=== PATIENT | female | born 1945 | race Caucasian/White ===

== ENCOUNTER 2024-04-17 02:50 | Observation (INO) | payer MEDICARE ==
[2024-04-17] MEDS ORDERED: Aspirin Chewable 81 MG TAB ONE (04:01)
[2024-04-17 05:31] LABS: Troponin I 0.048 ng/mL (< 0.028)
[2024-04-17] MEDS ORDERED: Ondansetron PF 4 MG/2 ML Vial IVP PRN (06:45)
[2024-04-17] MEDS ORDERED: Ondansetron ODT 4 MG TAB PO PRN (06:45)
[2024-04-17] MEDS ORDERED: Acetaminophen 325 MG TAB PO PRN (06:45)
[2024-04-17] MEDS ORDERED: Calcium Carbonate 500 MG ChewTAB PO PRN (06:45)
[2024-04-17 08:36] LABS: Hemoglobin A1c 6.1 % (4.0-6.0)
[2024-04-17] MEDS ORDERED: Famotidine 20 MG TAB PO SCH (09:00)
[2024-04-17] MEDS ORDERED: Famotidine 20 MG TAB ONE (09:16)
[2024-04-17] MEDS ORDERED: hydrALAZINE 20 MG/ML VIAL SLOW IVP PRN (10:26)
[2024-04-17 11:33] LABS: Troponin I 0.025 ng/mL (< 0.028)
[2024-04-17] MEDS ORDERED: hydrOXYzine 25 MG TAB PO PRN (12:05)
[2024-04-17] MEDS ORDERED: Polyethylene Glycol 3350 17 GM Packet PO PRN (12:05)
[2024-04-17] MEDS ORDERED: Docusate 100 MG CAP PO PRN (12:05)
[2024-04-17] MEDS ORDERED: Benzocaine/Menthol 1 LOZ LOZ PO PRN (12:33)
[2024-04-17] MEDS ORDERED: GUAIFENESIN SF SOLN 200 MG/10 ML UDCUP PO PRN (12:33)
[2024-04-17 14:19] VITALS: BMI 39.0
[2024-04-17] MEDS: Gabapentin 100 MG CAP PO SCH (19:09)
[2024-04-17 20:11] LABS: HBSAB Concentration Less than 8.00 mIU/mL; HBsAg Index 0.34 S/CO (0-0.99); Hep B Core Total Ab NONREACTIVE (NonReactive); Hep B Core Total Index 0.21 S/CO (0-0.79); Hep B Surf AB NONREACTIVE (NonReactive); Hep B Surf Ag NONREACTIVE S/CO (NonReactive); Hep C IgG Ab NONREACTIVE S/CO (NonReactive); Hep C Index 0.07 S/CO (0-0.79)
[2024-04-17] MEDS ORDERED: tiZANidine HCl 4 MG TAB PO SCH (21:00)
[2024-04-17] MEDS: Dronedarone HCl 400 MG TAB PO SCH (22:10)
[2024-04-17] MEDS: Amitriptyline HCl 100 MG TAB PO SCH (22:10)
[2024-04-17] MEDS: Rosuvastatin 10 MG TAB PO SCH (22:11)
[2024-04-17] MEDS: rOPINIRole HCl 2 MG TAB PO SCH (22:11)
[2024-04-17] MEDS: Apixaban 5 MG TAB PO SCH (22:11)
[2024-04-17] MEDS: tiZANidine HCl 4 MG TAB PO PRN (22:54)
[2024-04-18 04:44] LABS: #Basophils 0.04 10x3/uL (0.0-0.2); %Basophils 0.5 % (0.0-1.0); %Eosinophils 1.4 % (0.0-10.0); %Lymphocytes 17.5 % (21.0-51.0); %Monocytes 7.1 % (0.0-10.0); %Neutrophils 72.9 % (42.0-75.0); Hematocrit 32.9 % (36.0-47.0); Hemoglobin 10.6 g/dL (12.0-16.0); Mean Corpuscular HGB CONC 32.2 g/dL (32.0-36.0); Mean Corpuscular Hemoglobin 30.5 pg (27.0-31.0); Mean Corpuscular Volume 94.8 fL (78.0-98.0); Platelet Count 200 10x3/uL (130-400); RBC Distribution Width 15.7 % (11.5-14.5); Red Blood Cell (RBC) Count 3.47 mill/uL (4.20-5.40)
[2024-04-18] MEDS: Levothyroxine 175 MCG TAB PO SCH (05:47)
[2024-04-18 05:53] LABS: ALT (SGPT) 9 U/L (8-55); AST (SGOT) 12 U/L (5-34); Alkaline Phosphatase 65 U/L (40-110); Anion Gap 11 mmol/L (10-20); BUN (Urea Nitrogen) 13 mg/dL (9.8-20.1); Bilirubin, Total 0.5 mg/dL (0.2-1.2); Calc. Creatinine Clearance 24 mL/min (70-130); Calcium 8.3 mg/dL (7.8-10.44); Carbon Dioxide 32 mmol/L (23-31); Chloride 101 mmol/L (98-107); Estimated GFR 14; Globulin 2.5 g/dL (2.4-3.5); Glucose 150 mg/dL (83-110); Potassium 3.3 mmol/L (3.5-5.1); Protein, Total 5.5 g/dL (5.8-8.1); Sodium 141 mmol/L (136-145)
[2024-04-18] MEDS: Ezetimibe 10 MG TAB PO SCH (09:11)
[2024-04-18] MEDS: glipiZIDE 10 MG TAB PO SCH (09:12)
[2024-04-18] MEDS: Aspirin 81 mg Enteric Coated Tablet PO SCH (09:12)
[2024-04-18] MEDS: rOPINIRole HCl 1 MG TAB PO SCH (09:12)
[2024-04-18] MEDS: Alogliptin 6.25 MG TAB PO SCH (09:12)
[2024-04-18] MEDS: Potassium Chloride 20 MEQ TAB PO SCH (09:12)
[2024-04-18] MEDS: traMADol HCl 50 MG TAB PO SCH (09:15)
[2024-04-18 11:52] VITALS: TEMP 97.6
[2024-04-18 16:13] VITALS: BP 144/71
== END 2024-04-18 17:53 | disposition home or self-care (01) ==
LOC: ERHOLD 03:41 → 2SW 14:10
PROVIDERS: ADMIT Emergency Medicine; ATTEND Emergency Medicine
DX: R53.1 Weakness (principal); R79.89 Other specified abnormal findings of blood chemistry; I13.2 Hypertensive heart and chronic kidney disease with heart failure and with stage 5 chronic kidney disease, or end stage renal disease; I50.9 Heart failure, unspecified; N18.6 End stage renal disease; E11.22 Type 2 diabetes mellitus with diabetic chronic kidney disease; I48.91 Unspecified atrial fibrillation; E03.9 Hypothyroidism, unspecified; E78.5 Hyperlipidemia, unspecified; Z79.84 Long term (current) use of oral hypoglycemic drugs; Z79.4 Long term (current) use of insulin; Z99.2 Dependence on renal dialysis; Z79.890 Hormone replacement therapy
CPT/HCPCS: 36415; 36416; 71045; 80053; 80061; 81001; 83036; 83605; 83690; 83880; 84439; 84443; 84484; 85025; 86704; 86706; 86803; 87040; 87086; 87340; 87428; 93005; 96360; 96361; 97139; G0378

== ENCOUNTER 2024-04-24 10:21 | Inpatient (IN) | payer MEDICARE ==
[2024-04-24 11:01] LABS: #Basophils 0.07 10x3/uL (0.0-0.2); %Basophils 0.8 % (0.0-1.0); %Eosinophils 1.4 % (0.0-10.0); %Lymphocytes 13.8 % (21.0-51.0); %Neutrophils 77.5 % (42.0-75.0); Hematocrit 36.8 % (36.0-47.0); Hemoglobin 11.9 g/dL (12.0-16.0); Mean Corpuscular HGB CONC 32.3 g/dL (32.0-36.0); Mean Corpuscular Hemoglobin 30.2 pg (27.0-31.0); Mean Corpuscular Volume 93.4 fL (78.0-98.0); Mean Platelet Volume 10.7 fL (7.4-10.4); Platelet Count 249 10x3/uL (130-400); RBC Distribution Width 15.3 % (11.5-14.5); Red Blood Cell (RBC) Count 3.94 mill/uL (4.20-5.40)
[2024-04-24 11:19] LABS: ALT (SGPT) 13 U/L (8-55); AST (SGOT) 19 U/L (5-34); Albumin 3.8 g/dL (3.4-4.8); Alkaline Phosphatase 67 U/L (40-110); Anion Gap 15 mmol/L (10-20); BUN (Urea Nitrogen) 25 mg/dL (9.8-20.1); Bilirubin, Total 0.9 mg/dL (0.2-1.2); Calc. Creatinine Clearance 0 mL/min (70-130); Calcium 9.2 mg/dL (7.8-10.44); Carbon Dioxide 27 mmol/L (23-31); Chloride 102 mmol/L (98-107); Estimated GFR 9; Globulin 3.3 g/dL (2.4-3.5); Glucose 179 mg/dL (83-110); Lipase 24 U/L (8-78); Magnesium 1.8 mg/dL (1.6-2.6); Protein, Total 7.1 g/dL (5.8-8.1); Sodium 140 mmol/L (136-145)
[2024-04-24] MEDS ORDERED: Acetaminophen 500 MG TAB ONE (11:23)
[2024-04-24 12:03] LABS: Troponin I 0.029 ng/mL (< 0.028)
[2024-04-24 14:21] LABS: Troponin I 0.033 ng/mL (< 0.028)
[2024-04-24] MEDS ORDERED: Insulin Lispro 100 UNIT/ML 10 ML VIAL SC PRN (14:39)
[2024-04-24] MEDS ORDERED: Dextrose 5% in Water 1,000 ML IV PRN (14:39)
[2024-04-24] MEDS ORDERED: Dextrose 50% Abboject 50 ML SYRINGE SLOW IVP PRN (14:39)
[2024-04-24] MEDS ORDERED: Glucagon 1 MG/ML KIT IM PRN (14:39)
[2024-04-24] MEDS ORDERED: tiZANidine HCl 4 MG TAB PO PRN (15:21)
[2024-04-24] MEDS ORDERED: Polyethylene Glycol 3350 17 GM Packet PO PRN (15:21)
[2024-04-24] MEDS ORDERED: hydrOXYzine 25 MG TAB PO PRN (15:21)
[2024-04-24 17:17] LABS: Troponin I 0.035 ng/mL (< 0.028)
[2024-04-24 17:52] LABS: Bacteria/HPF 3+ HPF (None Seen); Bilirubin Negative (Negative); Blood, Urine Negative (Negative); CAUTI Indications for Culture Pelvic or flank pain; Clarity Clear (Clear); Glucose, Urine (Dipstick) Normal (Negative); Ketone, Urine Negative (Negative); Leukocyte Negative Leu/uL (Negative); Nitrite Negative (Negative); Protein, Urine (Dipstick) 300 mg/dL (Neg-Trace); RBC/HPF 0-3 HPF (0-3); Specific Gravity, Urine 1.018 (1.002-1.036); Squamous Epithelial 0-3 HPF (0-3); pH, Urine 7.5 (5.0-9.0)
[2024-04-24 17:53] LABS: Urine Culture Reflex No No
[2024-04-24 18:26] VITALS: BMI 37.0
[2024-04-24] MEDS: Gabapentin 100 MG CAP PO SCH ×2 (18:41→23:34)
[2024-04-24] MEDS: Levothyroxine 150 MCG TAB PO SCH (18:42)
[2024-04-24] MEDS ORDERED: rOPINIRole HCl 1 MG TAB PO SCH (21:00)
[2024-04-24] MEDS ORDERED: Gabapentin 100 MG CAP PO SCH (21:00)
[2024-04-24] MEDS: Rosuvastatin 10 MG TAB PO SCH (23:34)
[2024-04-24] MEDS: rOPINIRole HCl 1 MG TAB PO SCH (23:34)
[2024-04-24] MEDS: Dronedarone HCl 400 MG TAB PO SCH (23:35)
[2024-04-24] MEDS: Apixaban 5 MG TAB PO SCH (23:36)
[2024-04-25 05:10] LABS: #Basophils 0.05 10x3/uL (0.0-0.2); %Basophils 0.6 % (0.0-1.0); %Eosinophils 2.2 % (0.0-10.0); %Lymphocytes 17.2 % (21.0-51.0); %Monocytes 7.5 % (0.0-10.0); %Neutrophils 72.3 % (42.0-75.0); Hemoglobin 11.5 g/dL (12.0-16.0); Mean Corpuscular HGB CONC 32.9 g/dL (32.0-36.0); Mean Corpuscular Hemoglobin 30.4 pg (27.0-31.0); Mean Corpuscular Volume 92.6 fL (78.0-98.0); Mean Platelet Volume 10.5 fL (7.4-10.4); Platelet Count 233 10x3/uL (130-400); RBC Distribution Width 15.4 % (11.5-14.5); Red Blood Cell (RBC) Count 3.78 mill/uL (4.20-5.40)
[2024-04-25 05:17] LABS: Anion Gap 11 mmol/L (10-20); BUN (Urea Nitrogen) 11 mg/dL (9.8-20.1); Calc. Creatinine Clearance 27 mL/min (70-130); Calcium 8.6 mg/dL (7.8-10.44); Carbon Dioxide 28 mmol/L (23-31); Chloride 103 mmol/L (98-107); Estimated GFR 16; Glucose 129 mg/dL (83-110); Sodium 139 mmol/L (136-145)
[2024-04-25] MEDS: Levothyroxine 150 MCG TAB PO SCH (06:06)
[2024-04-25] MEDS ORDERED: Enoxaparin 30 MG (0.3 mL) SYRINGE SC SCH (09:00)
[2024-04-25] MEDS: Ezetimibe 10 MG TAB PO SCH (09:19)
[2024-04-25] MEDS: Aspirin Chewable 81 MG TAB PO SCH (09:19)
[2024-04-25] MEDS: rOPINIRole HCl 1 MG TAB PO SCH (09:19)
[2024-04-25] MEDS: traMADol HCl 50 MG TAB PO SCH (09:19)
[2024-04-25] MEDS: Saxagliptin 2.5 MG TAB PO SCH (09:30)
[2024-04-25] MEDS: Losartan 25 MG TAB PO SCH (09:30)
[2024-04-25] MEDS: Potassium Chloride 20 MEQ TAB PO SCH ×2 (09:30→16:58)
[2024-04-25] MEDS: Magnesium Oxide 400 MG TAB PO SCH (09:30)
[2024-04-25 09:41] VITALS: BMI 36.7
[2024-04-26 04:51] LABS: #Basophils 0.05 10x3/uL (0.0-0.2); %Basophils 0.6 % (0.0-1.0); %Eosinophils 3.8 % (0.0-10.0); %Lymphocytes 26.3 % (21.0-51.0); %Monocytes 8.1 % (0.0-10.0); %Neutrophils 60.9 % (42.0-75.0); Hematocrit 34.5 % (36.0-47.0); Hemoglobin 11.1 g/dL (12.0-16.0); Mean Corpuscular HGB CONC 32.2 g/dL (32.0-36.0); Mean Corpuscular Hemoglobin 30.5 pg (27.0-31.0); Mean Corpuscular Volume 94.8 fL (78.0-98.0); Mean Platelet Volume 10.8 fL (7.4-10.4); Platelet Count 218 10x3/uL (130-400); RBC Distribution Width 15.5 % (11.5-14.5); Red Blood Cell (RBC) Count 3.64 mill/uL (4.20-5.40)
[2024-04-26 05:10] LABS: Anion Gap 12 mmol/L (10-20); BUN (Urea Nitrogen) 19 mg/dL (9.8-20.1); Calc. Creatinine Clearance 17 mL/min (70-130); Calcium 8.5 mg/dL (7.8-10.44); Carbon Dioxide 28 mmol/L (23-31); Chloride 103 mmol/L (98-107); Estimated GFR 10; Glucose 131 mg/dL (83-110); Potassium 3.9 mmol/L (3.5-5.1); Sodium 139 mmol/L (136-145)
[2024-04-26] MEDS: Levothyroxine 175 MCG TAB PO SCH (05:39)
[2024-04-26] MEDS ORDERED: Levothyroxine Sodium 100 MCG TAB PO SCH ×2 (06:00)
[2024-04-27 05:08] LABS: #Basophils 0.04 10x3/uL (0.0-0.2); %Basophils 0.5 % (0.0-1.0); %Lymphocytes 20.4 % (21.0-51.0); %Monocytes 8.8 % (0.0-10.0); %Neutrophils 66.1 % (42.0-75.0); Hemoglobin 11.4 g/dL (12.0-16.0); Mean Corpuscular HGB CONC 32.6 g/dL (32.0-36.0); Mean Corpuscular Volume 92.1 fL (78.0-98.0); Mean Platelet Volume 10.9 fL (7.4-10.4); Platelet Count 229 10x3/uL (130-400); RBC Distribution Width 15.4 % (11.5-14.5)
[2024-04-27 05:23] LABS: Anion Gap 11 mmol/L (10-20); BUN (Urea Nitrogen) 15 mg/dL (9.8-20.1); Calc. Creatinine Clearance 18 mL/min (70-130); Calcium 8.3 mg/dL (7.8-10.44); Carbon Dioxide 29 mmol/L (23-31); Chloride 101 mmol/L (98-107); Estimated GFR 10; Glucose 130 mg/dL (83-110); Potassium 3.8 mmol/L (3.5-5.1); Sodium 137 mmol/L (136-145)
[2024-04-27] MEDS: Amiodarone 200 MG TAB PO SCH (10:12)
[2024-04-27 10:20] LABS: Magnesium 2.2 mg/dL (1.6-2.6)
[2024-04-27] MEDS: Insulin Lispro 100 UNIT/ML 10 ML VIAL SC PRN (12:28)
[2024-04-28 04:17] LABS: #Basophils 0.04 10x3/uL (0.0-0.2); %Basophils 0.4 % (0.0-1.0); %Eosinophils 2.2 % (0.0-10.0); %Lymphocytes 8.2 % (21.0-51.0); %Neutrophils 83.9 % (42.0-75.0); Hematocrit 37.9 % (36.0-47.0); Hemoglobin 12.4 g/dL (12.0-16.0); Mean Corpuscular HGB CONC 32.7 g/dL (32.0-36.0); Mean Corpuscular Volume 91.5 fL (78.0-98.0); Mean Platelet Volume 11.2 fL (7.4-10.4); Platelet Count 218 10x3/uL (130-400); RBC Distribution Width 15.4 % (11.5-14.5); Red Blood Cell (RBC) Count 4.14 mill/uL (4.20-5.40)
[2024-04-28 04:38] LABS: Anion Gap 13 mmol/L (10-20); BUN (Urea Nitrogen) 24 mg/dL (9.8-20.1); Calc. Creatinine Clearance 14 mL/min (70-130); Calcium 8.9 mg/dL (7.8-10.44); Carbon Dioxide 28 mmol/L (23-31); Chloride 101 mmol/L (98-107); Estimated GFR 7; Glucose 152 mg/dL (83-110); Sodium 138 mmol/L (136-145)
[2024-04-29 04:30] LABS: #Basophils 0.03 10x3/uL (0.0-0.2); %Basophils 0.6 % (0.0-1.0); %Lymphocytes 26.6 % (21.0-51.0); %Monocytes 12.9 % (0.0-10.0); %Neutrophils 57.5 % (42.0-75.0); Hematocrit 35.7 % (36.0-47.0); Hemoglobin 11.3 g/dL (12.0-16.0); Mean Corpuscular HGB CONC 31.7 g/dL (32.0-36.0); Mean Corpuscular Hemoglobin 30.1 pg (27.0-31.0); Mean Corpuscular Volume 95.2 fL (78.0-98.0); Platelet Count 187 10x3/uL (130-400); RBC Distribution Width 15.4 % (11.5-14.5); Red Blood Cell (RBC) Count 3.75 mill/uL (4.20-5.40)
[2024-04-29 04:57] LABS: Anion Gap 13 mmol/L (10-20); BUN (Urea Nitrogen) 12 mg/dL (9.8-20.1); Calc. Creatinine Clearance 20 mL/min (70-130); Calcium 8.6 mg/dL (7.8-10.44); Carbon Dioxide 27 mmol/L (23-31); Chloride 101 mmol/L (98-107); Estimated GFR 12; Glucose 123 mg/dL (83-110); Potassium 3.7 mmol/L (3.5-5.1); Sodium 137 mmol/L (136-145)
[2024-04-29 09:35] VITALS: BP 171/71; TEMP 98.1
[2024-04-29] MEDS: Docusate 100 MG CAP PO PRN (10:55)
== END 2024-04-29 14:47 | DRG 643 ==
LOC: ERS 10:21 → ERHOLD 13:41 → OBS 17:46 → OBSVTOIN 04-25 15:07
PROVIDERS: ADMIT Family Medicine; ATTEND Family Medicine
DX: E03.9 Hypothyroidism, unspecified (principal); N18.6 End stage renal disease; I12.0 Hypertensive chronic kidney disease with stage 5 chronic kidney disease or end stage renal disease; E83.42 Hypomagnesemia; E11.22 Type 2 diabetes mellitus with diabetic chronic kidney disease; L84 Corns and callosities; E78.5 Hyperlipidemia, unspecified; I48.0 Paroxysmal atrial fibrillation; D63.1 Anemia in chronic kidney disease; Z66 Do not resuscitate; E87.6 Hypokalemia; Z99.2 Dependence on renal dialysis; Z88.0 Allergy status to penicillin; Z79.82 Long term (current) use of aspirin; Z79.899 Other long term (current) drug therapy; Z79.01 Long term (current) use of anticoagulants; Z79.84 Long term (current) use of oral hypoglycemic drugs; Z90.89 Acquired absence of other organs; Z90.710 Acquired absence of both cervix and uterus; Z98.890 Other specified postprocedural states
CPT/HCPCS: 36415; 36416; 70450; 71045; 72125; 80048; 80053; 81001; 83690; 83735; 83880; 84439; 84443; 84484; 85025; 90935; 93005; 93880; 97139; G0257; G0378